=== PATIENT | female | born 1955 | race Caucasian/White ===

== ENCOUNTER → 2018-09-27 15:59 | Outpatient (CLI) | payer MEDICARE, MEDICAID, SELFPAY ==
--- NOTE | 2018-09-27 16:04 | CT_ITS ---
CT lung screening EXAM: CT LUNG LOW DOSE WO CONTRAST HISTORY: 30+ pack year smoking history, asymptomatic for lung cancer ITS.REASON: Smoker X 30+ years; quit 7 years ago ORDERING PHYSICIAN: KRISTINA Owens PATIENT AGE: 63 years COMPARISON: None TECHNIQUE: The exam was performed on a [employer] Speed [address] scanner using 2.90 mGy CTDI. A low dose helical CT CHEST was performed on a multi-detector scanner. All CT scans at the facility use one or more dose reduction, viz: automated exposure control, ma/kV adjustment per patient size (including targeted exams where dose is matched to indication, i.e. head), or iterative reconstruction technique. The LDCT was performed in a facility that meets the criteria for the screening program. Data regarding this exam was submitted to ACR which is an approved registry. The order for this exam indicates that it came as a result of a lung cancer screening counseling shard decision-making visit that included all the elements required of such a visit including smoking cessation. The radiologist interpreting this exam meets the CMS criteria for the LDCT lung cancer screening program. The exam is reported using the Lung-RADS classification scale and reported to the ACR registry. NOTE: This study was performed for the specific purposes of lung cancer screening and is not an alternative to diagnostic chest CT. RADIATION DOSE: CTDI vol(CT dose Index-volume) = 2.90mG DLP (Dose Length Product) = 98.73 mGcm FINDINGS: There is prominent coronary artery calcifications present. Old granulomatous disease. There are atelectatic or fibrotic changes in the lung bases. There are atelectatic changes in the lingula. Left hemidiaphragm is elevated. Consolidation is present involving the left lower lobe posteriorly consistent with pneumonia 7 mm noncalcified nodule left lower lobe medially some of which could be related to some volume loss. IMPRESSION: 1. Lung RADS Category: 3, probably benign 2. Other findings: Left lower lobe pneumonia, coronary artery disease RECOMMENDATIONS: Recommend [address] for follow-up of the 7 mm nodule in the left lower lobe Suggest chest x-ray follow-up to confirm resolution of the left lower lobe pneumonia
== END ==
PROVIDERS: PCP Physician Assistant; Visit Provider Physician Assistant
DX: Z87.891 Personal history of nicotine dependence (principal); Z12.2 Encounter for screening for malignant neoplasm of respiratory organs

== ENCOUNTER → 2018-10-30 14:01 | Outpatient (CLI) | payer MEDICARE, MEDICAID, SELFPAY ==
--- NOTE | 2018-10-30 14:10 | XR_ITS ---
PROCEDURE: XR FOOT WT BEARING LT 3V CLINICAL INDICATION: knot on left foot COMPARISON: XR ANKLE WT BEARING LT MIN 3V from 10/30/2018 FINDINGS: The ankle has an unremarkable appearance. There is prominent bony hypertrophy involving the dorsal aspect of the medial cuneiform and mid cuneiform with osteoarthritic changes of the tarsometatarsal junction at the cuneiforms. There are osteoarthritic changes of the navicular cuneiform joint as well and the talonavicular joint with a small accessory center of ossification at the dorsal and proximal aspect of the navicular. No fracture or dislocation evident. There is soft tissue swelling noted at the region of the dorsal hypertrophy at the cuneiforms accounting for the palpable abnormality. IMPRESSION: Severe midfoot osteoarthritic changes with bony hypertrophy and skin thickening along the dorsal aspect of the metatarsal tarsal joint with mild pes planus Dictated by: Onesimo Thompson MD 10/30/2018 14:55 Electronically signed by Onesimo Thompson MD in [place] 10/30/2018 14:55
--- NOTE | 2018-10-30 14:10 | XR_ITS ---
PROCEDURE: XR ANKLE WT BEARING RT MIN 3V CLINICAL INDICATION: pain COMPARISON: XR FOOT WT BEARING RT 3V from 10/30/2018 FINDINGS: There are osteoarthritic changes of the ankle joint with loss of joint space greater along the lateral aspect and osteosclerosis of the distal tibia and talar dome with some cortical regularity of the talar dome. There is mild flattening of the talar dome anteriorly. There are hypertrophic changes along the mid aspect of the talus and hypertrophic changes along the dorsal aspect of the navicular. There is pes planus. There appears to be an accessory ossicle at the dorsal aspect of the navicular on the oblique view of the foot. There are mild osteoarthritic changes of the subtalar joint posteriorly. Mild hypertrophic changes are present at the distal aspect of the 1st metatarsal. IMPRESSION: 1. Severe osteoarthritic changes of the ankle with flattening of the talar dome 2. Mild osteoarthritic change posterior subtalar joint and midfoot with pes planus Dictated by: Onesimo Thompson MD 10/30/2018 14:49 Electronically signed by Onesimo Thompson MD in [place] 10/30/2018 14:49
--- NOTE | 2018-10-30 14:17 | XR_ITS ---
PROCEDURE: XR CHEST 2V CLINICAL HISTORY: resolving pneumonia Pneumonia COMPARISON: LUNGSCREEN CT lung screening from 09/27/2018 FINDINGS: The cardiomediastinal silhouette and pulmonary vascularity are within normal limits. Left hemidiaphragm is elevated. There is minimal blunting of the left CP angle. No lobar consolidation or collapse is evident. There are degenerative changes in the mid and lower thoracic spine. There is mild wedging involving T12. IMPRESSION: No acute findings. Dictated by: Onesimo Thompson MD 10/30/2018 14:43 Electronically signed by Onesimo Thompson MD in [place] 10/30/2018 14:43
== END ==
PROVIDERS: PCP Physician Assistant; Visit Provider Podiatrist
DX: J18.9 Pneumonia, unspecified organism; M25.572 Pain in left ankle and joints of left foot; M25.571 Pain in right ankle and joints of right foot; M79.672 Pain in left foot; M79.671 Pain in right foot
CPT/HCPCS: 71046; 73610; 73630

== ENCOUNTER → 2021-04-22 13:49 | Outpatient (CLI) | payer MEDICARE, MEDICAID, SELFPAY | PROVIDERS: Visit Provider Physician Assistant | DX: N39.0 Urinary tract infection, site not specified (principal); B95.8 Unspecified staphylococcus as the cause of diseases classified elsewhere | CPT/HCPCS: 87086; 87088; 87186 ==

== ENCOUNTER → 2021-09-11 13:49 | Outpatient (CLI) | payer MEDICARE, MEDICAID, SELFPAY ==
[2021-09-11 13:55] LABS: Microscopic, Urine URINE MICROSCOPIC (MICROSCOPIC)
[2021-09-11 14:09] LABS: Appearance,Urine CLEAR (Clear); Bilirubin,Urine Negative (Negative); Blood, Urine TRACE-I (Negative); Color,Urine YELLOW (Yellow); Glucose,Urine (UA) Negative (Negative); Ketones,Urine Negative (Negative); Leukocyte Esterase,Urine Negative (Negative); Nitrate,Urine Negative (Negative); Protein,Urine Negative (Negative); Specific Gravity, Urine >= 1.030 (1.005-1.030); Urobilinogen,Urine 0.2 EU/dl (0.2)
[2021-09-11 14:21] LABS: Bacteria,Urine Trace /lpf; Mucus,Urine Trace /lpf; Squamous Epithelial Cell,Urine Occasional #/hpf (0-5)
== END ==
PROVIDERS: PCP Physician Assistant; Visit Provider Physician Assistant
DX: R35.0 Frequency of micturition (principal)
CPT/HCPCS: 81001; 87086

== ENCOUNTER → 2021-09-23 11:54 | Outpatient (CLI) | payer MEDICARE, MEDICAID, SELFPAY | PROVIDERS: PCP Physician Assistant; Visit Provider Physician Assistant | DX: R39.9 Unspecified symptoms and signs involving the genitourinary system (principal) | CPT/HCPCS: 87086 ==

== ENCOUNTER → 2021-11-20 09:34 | Outpatient (CLI) | payer MEDICARE, MEDICAID, SELFPAY ==
--- NOTE | 2021-11-20 09:34 | XR_ITS ---
FINAL REPORT TECHNIQUE: Bone densitometry calculations of the lumbar spine and hips were obtained. CLINICAL HISTORY: . post menopausal FINDINGS: Using L1-4, the bone mineral density of the spine is 1.134 g/cm2, corresponding to T-score of 0.8. Using the left hip, the bone mineral density of the femoral neck is 0.675 g/cm2, corresponding to a T-score of -2.2. Using the right hip, the bone mineral density of the femoral neck is 0.689 g/cm2, corresponding to a T-score of -2.1. IMPRESSION: Osteopenia of the femurs with normal bone mineral density of the lumbar spine. Reviewed, Interpreted and Dictated by Saad Bo MD Transcribed by Yogi Hopkins Authenticated and [facility]
== END ==
PROVIDERS: PCP Physician Assistant; Visit Provider Physician Assistant
DX: Z78.0 Asymptomatic menopausal state (principal)
CPT/HCPCS: 77080

== ENCOUNTER → 2022-01-19 09:36 | Outpatient (CLI) | payer MEDICARE, MEDICAID, SELFPAY ==
--- NOTE | 2022-01-19 09:40 | XR_ITS ---
FINAL REPORT CLINICAL HISTORY: knee pain FINDINGS: 3 views of the left knee were obtained. No fracture or dislocation. Severe tri compartment degenerative change. Osteopenia. IMPRESSION: Severe tri compartment degenerative change. Reviewed, Interpreted and Dictated by Saad Bo MD Transcribed by Yogi Hopkins Authenticated and [facility]
[2022-01-19 09:51] LABS: Adenovirus,PCR Not Detected (NotDetected); Bordetella Pertussis Not Detected (NotDetected); Chlamydophila Pneumoniae, PCR Not Detected (NotDetected); Coronavirus 19, PCR Not Detected (NotDetected); Coronavirus 229E Not Detected (NotDetected); Coronavirus NL63 Not Detected (NotDetected); Coronavirus OC43 Not Detected (NotDetected); Coronovirus HKU1,PCR Not Detected (NotDetected); Human Metapneumovirus Not Detected (NotDetected); Influenza A, PCR Not Detected (NotDetected); Influenza AH1, 2009 Not Detected (NotDetected); Influenza AH1, PCR Not Detected (NotDetected); Influenza AH3,PCR Not Detected (NotDetected); Influenza B, PCR Not Detected (NotDetected); Mycoplasma Pneumoniae, PCR Not Detected (NotDetected); Parainfluenza 1, PCR Not Detected (NotDetected); Parainfluenza 2, PCR Not Detected (NotDetected); Parainfluenza 3, PCR Not Detected (NotDetected); Parainfluenza 4, PCR Not Detected (NotDetected); Respiratory Syncytial Virus Not Detected (NotDetected); Rhinovirus/Enterovirus Not Detected (NotDetected)
== END ==
PROVIDERS: PCP Emergency Medicine; Visit Provider Orthopaedic Surgery
DX: M25.562 Pain in left knee (principal); Z20.822 Contact with and (suspected) exposure to COVID-19
CPT/HCPCS: 73562; 87581; 87632; 87798; C9803; U0003; U0005

== ENCOUNTER → 2022-12-15 08:36 | Outpatient (CLI) | payer MEDICARE, MEDICAID, SELFPAY ==
--- NOTE | 2022-12-15 08:40 | MM_ITS ---
PROCEDURE INFORMATION: Exam: MG Bilateral Screening 3D Mammography Exam date and time: 12/15/2022 8:52 AM Age: 67 years old Clinical indication: Screening mammogram. Family history of breast cancer in grandmother TECHNIQUE: Imaging protocol: Bilateral Screening tomosynthesis and 2D mammography including computer-aided detection (CAD) when performed. COMPARISON: 1. MG JENNIFER SCRN MAMMO W/CAD BILAT 05/03/2017 2:08 PM 2. MG MA MAMMO SCRN DIGITL BILAT 02/29/2012 10:18 AM FINDINGS: MAMMOGRAPHY: Breast composition: There are scattered areas of fibroglandular density. Mass: None. Architectural distortion: No new or suspicious architectural distortion. Calcifications: No new or suspicious calcifications are present Asymmetric density: No new or suspicious asymmetric density is present Skin thickening: None. Axillary adenopathy: None. IMPRESSION: No mammographic evidence of malignancy. Recommend annual screening mammography unless otherwise clinically indicated. ASSESSMENT: BI-RADS category 1: Negative
--- NOTE | 2022-12-15 08:40 | CT_ITS ---
FINAL REPORT CLINICAL HISTORY: lung cancer screening former smoker, quit 10 years ago. .5 ppd x 30 years COMPARISON: None FINDINGS: CT CHEST LOW DOSE SCREENING HISTORY: Screening exam for lung cancer. Patient is a 67-year-old female, former smoker who quit 10 years ago, 15 pack year smoking history DOSE: CTDIvol: 2.9 mGy, DLP: 91.95 mGy*cm COMPARISON: None . TECHNIQUE: Axial CT without IV contrast administration using low dose protocol FINDINGS: Severe left coronary artery calcifications are present, which account for the S designation in this patient. There is atelectasis and/or scar at the lung bases bilaterally. There is bronchial wall thickening consistent with bronchitis. . A moderate-sized hiatal hernia is noted. There is a 4 mm nodule in the inferior portion of the lingula, seen best on image #46. No pleural or pericardial effusion is seen . No adenopathy or mass lesion is present . IMPRESSION: 4 mm nodule inferior lingula image #46. Severe left coronary artery calcifications, which are responsible for the S designation. Bronchial wall thickening consistent with bronchitis. LUNG RADS CATEGORY 2S RECOMMENDATION: 12 month LDCT follow up Reviewed, Interpreted and Dictated by Andrey Rivera III, MD Transcribed by Yesika Cotton Authenticated and [facility]
--- NOTE | 2022-12-15 08:40 | US_ITS ---
Ultrasound Sonograher: PROCEDURE: US TRANSVAGINAL CLINICAL INDICATION: LLQ pelvic pain COMPARISON: No exams were available for comparison FINDINGS: Transvaginal sonographic images of the pelvis were obtained. UTERUS: The uterus is surgically absent. Vaginal cuff appears intact. LEFT OVARY: Not visualized RIGHT OVARY: Not visualized Both ovaries are not seen. There is no fluid in the cul-de-sac. IMPRESSION: 1. Uterus has been surgically removed. 2. Vaginal cuff is intact and normal in appearance. 3. The ovaries were not visualized. This could be a result of atrophy or surgical removal. 4. No fluid in the cul-de-sac. Dictated by: Alec Perkins MD 12/15/2022 14:21 Alec Perkins MD in [place] 12/15/2022 14:21
== END ==
PROVIDERS: PCP Physician Assistant; Visit Provider Physician Assistant
DX: Z12.31 Encounter for screening mammogram for malignant neoplasm of breast (principal); Z87.891 Personal history of nicotine dependence; R10.32 Left lower quadrant pain
CPT/HCPCS: 71271; 76830; 77063; 77067

== ENCOUNTER → 2023-01-11 11:21 | Outpatient (CLI) | payer MEDICARE, MEDICAID, SELFPAY ==
[2023-01-11 12:10] LABS: Basophils # 0.1 K/mm3 (0-0.2); Basophils % 0.7 % (0.1-2.0); Eosinophils # 0.7 K/mm3 (0.0-0.4); Lymphocytes # 1.6 K/mm3 (0.7-4.5); Lymphocytes % 20.2 % (10-50); Mean Corpuscular HGB Conc 33.4 g/dL (31.8-35.4); Mean Corpuscular Hemoglobin 29.8 pg (27.0-31.2); Mean Corpuscular Volume 89.1 fl (81-99); Mean Platelet Volume 7.7 fl (7.4-10.4); Monocytes # 0.6 K/mm3 (0.1-1.0); Monocytes % 7.4 % (1.7-9.3); Neutrophils # 5.1 K/mm3 (1.8-7.8); Neutrophils % 62.8 % (37.0-80.0); Platelet Count 283 K/mm3 (142-424); Red Blood Count 5.05 M/mm3 (4.20-5.40); Red Cell Distribution Width 14.4 % (11.5-17.5); White Blood Count 8.1 K/mm3 (4.8-10.8)
[2023-01-11 12:44] LABS: Alanine Aminotransferase 30 U/L (12-78); Alkaline Phosphatase 159 U/L (38-126); Anion Gap 10.2 mEq/L (5-15); Aspartate Amino Transferase 37 U/L (14-36); Bilirubin,Indirect 0.4 mg/dL (0.0-0.9); Bilirubin,Total 0.4 mg/dl (0.2-1.3); Bilirubin,Unconjugated 0.3 mg/dL (0.0-1.1); Blood Urea Nitrogen 9 mg/dl (7-17); Calcium 9.1 mg/dl (8.4-10.2); Carbon Dioxide 28 mmol/L (22.0-30.0); Chloride 99 mmol/L (98-107); Chol/HDL Ratio 2.9 (1-3.5); Cholesterol 153 mg/dl (140-200); Estimated Glomerular Filt Rate 99 ml/min (>60); GFR (African American) 120 ML/MIN (>60); Glucose 85 mg/dl (74-100); HDL Cholesterol 53 mg/dl (40-60); Potassium 4.2 mmoL/L (3.5-5.1); Sodium 133 mmol/L (136-145); Total Protein,Serum 6.8 g/dl (6.3-8.2); Triglycerides 100 mg/dl (30-150); VLDL Cholesterol 20 mg/dL (0-40)
[2023-01-11 12:55] LABS: Direct LDL Cholesterol 77.83 mg/dL (100-129)
[2023-01-11 13:00] LABS: Free T4 (Free Thyroxine) 1.18 ng/dl (0.78-2.19)
[2023-01-11 13:14] LABS: Thyroid Stimulating Hormone 0.84 uIU/mL (0.465-4.68)
== END ==
PROVIDERS: PCP Physician Assistant; Visit Provider Internal Medicine
DX: I25.10 Atherosclerotic heart disease of native coronary artery without angina pectoris (principal); R94.31 Abnormal electrocardiogram [ECG] [EKG]; Z79.899 Other long term (current) drug therapy
CPT/HCPCS: 36415; 80048; 80061; 80076; 83036; 83735; 84439; 84443; 85025

== ENCOUNTER → 2023-01-27 11:35 | Outpatient (CLI) | payer MEDICARE, MEDICAID, SELFPAY ==
--- NOTE | 2023-01-27 11:36 | NM_ITS ---
APPROVED REPORT Exam: Nuclear Stress Test Indication: abn ekg Patient Location: Outpatient Stress Tech: Madeline Smith [place] Tech:ZACH Hernandez RT(R)(N) Ht: 5 ft 1 in Wt: 129 lbs Bra Size: b HR: 84 bpm BP: 137/89 mmHg BSA: 1.57 m2 Rhythm: NSR TID: 0.92 BMI: 24.3 History: Abnormal EKG Procedure: Patient exercised on Bar protocol 9 minutes and sec, resting heart rate 84 bpm, resting blood pressure 137/89 mmHg, with exercise maximum heart rate achived was 160 bpm which is 106 % of the maximum predicted heart rate and blood pressure was 174/84 mmHg. Test was stopped due to fatigue. Patient denied any complaint of chest pain. Patient has Average exercise capacity, achieved 10.1 METs of workload on treadmill, the blood pressure response to exercise was Normal. Cardiac Stress and Resting SPECT Images: Cardiac Stress and Resting SPECT images were obtained using technetium 99m Myoview 31.0 mCi stress and 10.19 mCi at rest. Resting and stress imaging in supine and prone positions demonstrate no evidence of fixed or reversible perfusion defects. Gated imaging demonstrates normal global and regional LV systolic function. LVEF estimated at 59%. Conclusion: No evidence of fixed or reversible perfusion defects. Gated imaging demonstrates normal global and regional LV systolic function. LVEF estimated at 59%. Electronically signed by : Bernadine Ha MD 01/27/2023 15:39:02
--- NOTE | 2023-01-27 12:46 | CA_ITS ---
APPROVED REPORT EXAM: Comprehensive 2D, Doppler, and color-flow Echocardiogram Rare/Endangered Species Specialist: Rosana Giron RVT Ht: 5 ft 2 in Wt: 129lbs BSA: 1.59 BP: 145/98 mmHg Indications: CAD,ABN EKG,EX SMOKER 2D Dimensions LA Volume 44.20 mL LA Volume Index 27.80 mL/m2 (M/F) 16-34 M-Mode Dimensions RVDd 3.03 cm (0.9-2.6) LA Diam 2.92 cm (1.9-4.0) LVDd 3.52 cm (3.5-5.7) LVDs 2.42 cm (3.5-5.7) IVSd 1.42 cm (0.6-1.1) PWd 0.64 cm (0.6-1.1) EF (Teich) 60.10% FS 31.30% EDV (Teich) 51.60 mL TAPSE 2.55 (<1.7) ESV (Teich) 20.60 mL LV Diastology E Decel Time 183 (160-240 msec) E/A Ratio 0.7 Aortic Valve MARICRUZ Index 1.77 cm2/m2 AoV Peak Justo. 106.0 (50-130 cm/s) AO Peak GR. 4.50 mmHg AO Mean GR. 2.90 (<5 mmHg) AO VTI 19.6 (18-25 cm) MARICRUZ (VTI) 2.87 (2.5-4.5 cm2) Mitral Valve MV E Max Justo. 59.0 (40-130 cm/s) MV A Velocity 88.0 (40-130 cm/s) E/A Ratio 0.67 MV PHT 54.0 ms Pulmonary Valve PV Peak Velocity 64.0 (50-150 cm/s) Tricuspid Valve TR P. Velocity 178.00 cm/s RAP Estimate 10.00 mmHg RVSP 22.70 mmHg Left Ventricle The left ventricle is normal size. The left ventricular systolic function is normal. The left ventricular ejection fraction is within the normal range. There is increased LV wall thickness. There is normal LV segmental wall motion. Transmitral Doppler flow pattern suggests impaired LV relaxation. LVEF is 60%. Right Ventricle The right ventricle is normal size. The right ventricular systolic function is normal. Atria The left atrium size is normal. The right atrium size is normal. There is no Doppler evidence of interatrial shunt. Aortic Valve The aortic valve is normal in structure. There is no aortic valvular stenosis. No aortic regurgitation is present. Mitral Valve The mitral valve is normal in structure. No evidence of mitral valve stenosis. There is no mitral valve regurgitation noted. Tricuspid Valve Tricuspid valve leaflets are thin and pliable. Trace tricuspid regurgitation. RVSP is normal. Pulmonic Valve The pulmonary valve is normal in structure. Trace pulmonic regurgitation. Great Vessels The aortic root is normal in size. The ascending aorta is normal in size. IVC is normal in size and collapses >50% with inspiration. Pericardium There is no pericardial effusion. Other Information Study Quality: Fair Conclusion Normal biventricular systolic function. No significant valvular stenosis or regurgitation. Electronically signed by : Bernadine Ha MD 01/30/2023 20:52:20
--- NOTE | 2023-01-27 13:40 | CA_ITS ---
APPROVED REPORT Exam: Exercise Treadmill Technologist: Madeline Ramirez, Ht: 5 ft 2 in Wt: 129 lbs BSA: 1.59 m2 HR: 78 bpm BP: 142/85 mmHg Rhythm: NSR Medical History Medications: Flonase,,,,, Albuterol,,,,, Zofran,,,,, Hydrocodone-Acetaminophen,,,,, Stress Test Details Test: Bar HR Resting HR: 84 bpm Max Heart Rate (APMHR): 151 bpm Max HR Achieved: 160 bpm Target HR (85% APMHR): 128 bpm % of APMHR: 106 Recovery HR: 91 bpm HR response to stress: Normal HR response to stress BP Resting BP: 137.0/89.0 mmHg Max BP: 174.0/84.0 mmHg Recovery BP: 144.0/72.0 mmHg BP response to stress: Normal blood pressure response to stress. ECG Resting ECG: NSR, left axis deviation, cannot R/O old inferior or anterior [place] Stress ECG: New T wave inversion in anterior leads Arrhythmia: None Recovery ECG: Return to baseline within 3 minutes of recovery Recovery Arrhythmia: None Clinical Exercise duration: 09:00 min Highest Stage Achieved: III Exercise capacity: 10.1 METs Overall Exercise Capacity for Age: Average Stress ECG Conclusion The patient was able to exercise for a total of 9 minutes, 0 seconds. She achieved a total of 10.1 METS. She has average exercise capacity compared to age and sex matched peers. She has normal HR and BP response to exercise. Max HR: 132 % of PM: 87% Max BP: 174/84 METs: 10.1 Test stopped due to: SOA, Fatigue Symptoms: No CP. Arrhythmias/Ectopy: None ST-T Changes: New T wave inversions noted in the anterior leads. No ST changes Conclusion: Average exercise capacity. Nondiagnostic ECG stress test. Myoview images reported separately. Test Summary REST . . . . . . . Sitting REST . . . . . . . Standing REST 04:35 0.0 0.0 84 . 137/ 89 . . Stage 1 01:00 10.0 1.7 99 . . . . Stage 1 02:00 10.0 1.7 105 . . . . Stage 1 03:00 10.0 1.7 106 . 174/ 84 . . Stage 2 01:00 12.0 2.5 129 . . . . Stage 2 02:00 12.0 2.5 112 . . . . Stage 2 03:00 12.0 2.5 104 . . . . Stage 3 01:00 14.0 3.4 120 . . . . Stage 3 . . . . . . . Myoview Injected Stage 3 02:00 14.0 3.4 126 . . . . Stage 3 03:00 14.0 3.4 131 . . . Stop exercise at 09:00 RECOVERY 01:00 0.0 0.0 115 . . . . RECOVERY 02:00 0.0 0.0 102 . . . . RECOVERY 03:00 0.0 0.0 98 . 170/ 77 . . RECOVERY 04:00 0.0 0.0 95 . 155/ 72 . . RECOVERY 05:00 0.0 0.0 92 . 155/ 72 . . RECOVERY 05:22 0.0 0.0 91 . 144/ 72 . . Electronically signed by : Bernadine Ha MD 01/27/2023 15:37:35
== END ==
PROVIDERS: PCP Physician Assistant; Visit Provider Internal Medicine
DX: I25.10 Atherosclerotic heart disease of native coronary artery without angina pectoris (principal); R94.31 Abnormal electrocardiogram [ECG] [EKG]
CPT/HCPCS: 78452; 93017; 93018; 93306; A9502

== ENCOUNTER → 2023-01-28 09:48 | Outpatient (CLI) | payer MEDICARE, MEDICAID, SELFPAY ==
[2023-01-28 18:13] LABS: Basophils # 0.1 K/mm3 (0-0.2); Eosinophils % 10.8 % (0.1-12.0); Hematocrit 42.9 % (37.0-47.0); Hemoglobin 14.5 g/dL (12.2-16.2); Lymphocytes # 1.8 K/mm3 (0.7-4.5); Mean Corpuscular HGB Conc 33.7 g/dL (31.8-35.4); Mean Corpuscular Volume 89.1 fl (81-99); Mean Platelet Volume 8.9 fl (7.4-10.4); Monocytes # 0.9 K/mm3 (0.1-1.0); Monocytes % 9.4 % (1.7-9.3); Neutrophils # 5.3 K/mm3 (1.8-7.8); Neutrophils % 58.9 % (37.0-80.0); Platelet Count 318 K/mm3 (142-424); Red Blood Count 4.81 M/mm3 (4.20-5.40); Red Cell Distribution Width 13.9 % (11.5-17.5); White Blood Count 9.1 K/mm3 (4.8-10.8)
[2023-01-28 18:42] LABS: Alanine Aminotransferase 30 U/L (12-78); Albumin Level 4.6 g/dl (3.5-5.0); Albumin/Globulin Ratio 1.5 (1.1-1.8); Alkaline Phosphatase 159 U/L (38-126); Anion Gap 13.8 mEq/L (5-15); Aspartate Amino Transferase 42 U/L (14-36); Bilirubin,Total 0.5 mg/dl (0.2-1.3); Blood Urea Nitrogen 21 mg/dl (7-17); Calcium 9.6 mg/dl (8.4-10.2); Carbon Dioxide 26 mmol/L (22.0-30.0); Chloride 99 mmol/L (98-107); Estimated Glomerular Filt Rate 83 ml/min (>60); GFR (African American) 100 ML/MIN (>60); Globulin 3.1 g/dL (1.3-3.2); Glucose 72 mg/dl (74-100); Potassium 4.8 mmoL/L (3.5-5.1); Sodium 134 mmol/L (136-145); Total Protein,Serum 7.7 g/dl (6.3-8.2)
[2023-01-28 18:47] LABS: C-Reactive Protein 8.3 mg/L (0-4)
[2023-01-28 18:59] LABS: Erythrocyte Sedimentation Rate 18 mm/hr (0-30)
[2023-01-29 03:31] LABS: Amphetamine/Metha Screen,Urine Negative ng/ml (<1000)
[2023-01-29 03:32] LABS: Barbiturates Screen,Urine Negative ng/ml (<200)
[2023-01-29 03:33] LABS: Benzodiazepines Screen,Urine Negative ng/ml (<200); Cannabinoid Screen,Urine Positive ng/ml (<50)
[2023-01-29 03:34] LABS: Cocaine Screen,Urine Negative ng/ml (<300)
[2023-01-29 03:35] LABS: Methadone Screen,Urine Negative ng/ml (<300); Opiate Screen,Urine Negative ng/ml (<300)
[2023-01-29 03:36] LABS: Phencyclidine Screen,Urine Negative ng/ml (<25)
[2023-01-30 10:03] LABS: RA Latex Turbid. 10.6 IU/mL (<14.0)
[2023-01-31 13:02] LABS: Anti-Centromere B Antibodies <0.2 AI (0.0-0.9); Anti-DNA (DS) Ab Qn <1 IU/mL (0-9); Anti-Jo-1 <0.2 AI (0.0-0.9); Anti-Smith Antibody <0.2 AI (0.0-0.9); Antichromatin Antibodies <0.2 AI (0.0-0.9); Antiscleroderma-70 Antibodies <0.2 AI (0.0-0.9); RNP Antibodies 0.4 AI (0.0-0.9); Sjogren's Anti-SS-A <0.2 AI (0.0-0.9); Sjogren's Anti-SS-B <0.2 AI (0.0-0.9)
[2023-01-31 13:08] LABS: Anti-Cyclic Citrullinated Pept 12 units (0-19)
== END ==
PROVIDERS: PCP Physician Assistant; Visit Provider Physician Assistant
DX: L53.9 Erythematous condition, unspecified (principal); M17.12 Unilateral primary osteoarthritis, left knee; M25.571 Pain in right ankle and joints of right foot; G89.4 Chronic pain syndrome
CPT/HCPCS: 80053; 80305; 85025; 85651; 86140; 86200; 86225; 86235; 86431

== ENCOUNTER → 2023-01-31 11:39 | Outpatient (CLI) | payer MEDICARE, MEDICAID, SELFPAY ==
[2023-02-07 11:45] LABS: HBsAg Screen Negative (Negative); HCV Ab Non Reactive (Non Reactive); Hep A Ab, IGM Negative (Negative); Hep B Core Ab, IgM Negative (Negative)
== END ==
PROVIDERS: PCP Physician Assistant; Visit Provider Physician Assistant
DX: G89.4 Chronic pain syndrome; R94.5 Abnormal results of liver function studies; R74.8 Abnormal levels of other serum enzymes
CPT/HCPCS: 80074

== ENCOUNTER 2023-09-21 13:27 | Outpatient (CLI) | payer MEDICARE, MEDICAID, SELFPAY ==
--- NOTE | 2023-09-21 13:31 | XR_ITS ---
FINAL REPORT CLINICAL HISTORY: lt hand pain fall a few months ago, c/o continued left hand pain FINDINGS: Left hand Three views were obtained. There is no acute fracture or dislocation. There are moderate hypertrophic changes of osteoarthritis, particularly evident at the 3rd DIP joint. There is joint space narrowing and hypertrophic changes at the metacarpophalangeal joints. There is no evidence of bony erosion or periosteal reaction. No soft tissue abnormality is identified. IMPRESSION: Moderate hypertrophic changes of osteoarthritis, particularly at the 3rd DIP joint. Reviewed, Interpreted and Dictated by Cedric Chinchilla MD Transcribed by Nelly Grace Authenticated and [facility]
== END 2023-09-21 23:59 | disposition home or self-care (01) ==
LOC: RAD 13:28
PROVIDERS: PCP Physician Assistant; Visit Provider Physician Assistant
DX: M79.642 Pain in left hand (principal)
CPT/HCPCS: 73130

== ENCOUNTER 2023-12-19 14:45 | Outpatient (CLI) | payer MEDICARE, MEDICAID, SELFPAY ==
[2023-12-19 18:43] LABS: Alanine Aminotransferase 104 U/L (12-78); Albumin Level 4.1 g/dl (3.5-5.0); Albumin/Globulin Ratio 1.6 (1.1-1.8); Alkaline Phosphatase 94 U/L (38-126); Aspartate Amino Transferase 65 U/L (14-36); Bilirubin,Total 0.5 mg/dl (0.2-1.3); Blood Urea Nitrogen 23 mg/dl (7-17); Calcium 9.8 mg/dl (8.4-10.2); Carbon Dioxide 28 mmol/L (22.0-30.0); Chloride 99 mmol/L (98-107); Estimated Glomerular Filt Rate 83 ml/min (>60); GFR (African American) 100 ML/MIN (>60); Globulin 2.6 g/dL (1.3-3.2); Glucose 92 mg/dl (74-100); Sodium 135 mmol/L (136-145); Total Protein,Serum 6.7 g/dl (6.3-8.2)
[2023-12-19 19:42] LABS: 25-OH Vitamin D, Total 27.2 ng/mL (30-100)
== END 2023-12-19 23:59 | disposition home or self-care (01) ==
LOC: LAB.DROPOF 12-20 12:49
PROVIDERS: PCP Internal Medicine; Visit Provider Internal Medicine
DX: E55.9 Vitamin D deficiency, unspecified (principal); R73.03 Prediabetes
CPT/HCPCS: 80053; 82306; 83036

== ENCOUNTER 2024-07-03 12:30 | Outpatient (CLI) | payer MEDICARE, MEDICAID, SELFPAY ==
[2024-07-03 19:30] LABS: Basophils # 0.1 K/mm3 (0-0.2); Basophils % 0.8 % (0.1-2.0); Eosinophils # 0.4 Kmm3 (0.0-0.4); Eosinophils % 5.7 % (0.1-12.0); Hematocrit 42.4 % (37.0-47.0); Hemoglobin 13.9 g/dL (12.2-16.2); Immature Granulocytes # 0.03 10^3uL; Immature Granulocytes % 0.4 %; Lymphocytes # 1.6 K/mm3 (0.7-4.5); Mean Corpuscular HGB Conc 32.8 g/dL (31.8-35.4); Mean Corpuscular Hemoglobin 28.4 pg (27.0-31.2); Mean Corpuscular Volume 86.5 fl (81-99); Mean Platelet Volume 9.6 fl (7.4-10.4); Monocytes # 0.8 K/mm3 (0.1-1.0); Monocytes % 9.9 % (1.7-9.3); Neutrophils # 4.8 K/mm3 (1.8-7.8); Neutrophils % 62.2 % (37.0-80.0); Nucleated Red Blood Cells # 0 10^3/uL; Nucleated Red Blood Cells % 0 %; Platelet Count 347 K/mm3 (142-424); Red Cell Distribution Width-SD 44.4 fL; White Blood Count 7.7 K/mm3 (4.8-10.8)
[2024-07-03 19:54] LABS: Chloride 102 mmol/L (98-107)
[2024-07-03 19:55] LABS: Potassium 4.9 mmoL/L (3.5-5.1); Sodium 136 mmol/L (136-145)
[2024-07-03 19:58] LABS: Alanine Aminotransferase 31 U/L (12-78); Albumin/Globulin Ratio 1.4 (1.1-1.8); Alkaline Phosphatase 200 U/L (38-126); Anion Gap 9.9 mEq/L (5-15); Aspartate Amino Transferase 27 U/L (14-36); Bilirubin,Total 0.3 mg/dl (0.2-1.3); Blood Urea Nitrogen 9 mg/dl (7-17); Calcium 9.5 mg/dl (8.4-10.2); Carbon Dioxide 29 mmol/L (22.0-30.0); Chol/HDL Ratio 3.8 (1-3.5); Cholesterol 173 mg/dl (140-200); Estimated Glomerular Filt Rate 82 ml/min (>60); GFR (African American) 100 ML/MIN (>60); Globulin 2.8 g/dL (1.3-3.2); Glucose 86 mg/dl (74-100); HDL Cholesterol 45 mg/dl (40-60); Total Protein,Serum 6.8 g/dl (6.3-8.2); Triglycerides 118 mg/dl (30-150); VLDL Cholesterol 24 mg/dL (0-40)
[2024-07-03 20:09] LABS: Direct LDL Cholesterol 95.35 mg/dL (100-129)
[2024-07-03 20:12] LABS: 25-OH Vitamin D, Total 32.9 ng/mL (30-100)
--- OUTSIDE RECORDS SUMMARY | 2024-07-05 12:34 | XMS_ITS | Continuity of Care Document ---
Author Organization 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 We discussed conservative management including injections and NSAIDS as well as surgical intervention. We discussed the ROM she would have after a full recovery with an RTSA. Pt would like to move forward with RTSA. I would not recommend waiting given the thinning of the acromion. The indications, alternatives, risks, and benefits were fully discussed. The risks include but are not limited to infection, neurovascular injury, bleeding, persistent pain, stiffness, adhesions, component loosening, stress fracture, instability, blood clot, and medical problems. The duration of recovery was fully discussed. All questions were asked and answered. *CT before surgical intervention for glenoid version* [email or web address] Not available 06/11/2024 12:24:56 Plan of Treatment Reminders Order Date Submit Date Provider Last Modified By Organization Details Last Modified Time Details Appointments None recorded. Lab None recorded. Referral None recorded. Procedures None recorded. Surgeries reverse total shoulder arthroplast y (SURG) 2024 025 [email or web address] Not available 16:06:[address], shoulder, w/o contrast - CT shoulder arthroplast y protocol for pre-op planning 2024 025 [email or web address] Not available 13:07:48 Medication Orders None recorded. Patient TargetsNo targets recorded. Patient InstructionsNo instructions recorded. Reason for Referral None Reported. Results Created Date Observation Date Name Description Value Unit Range Abnormal Flag Note LastModifiedBy Organization Detail LastModifiedTime 06/12/1906/11/2024 XR, shoul gibran, 2 or more view [place] [facility] [place] [address] [place] [id number] Patien t Name: RYAN THOMPSON Patijoseluis t : [birth year] Patien t Orderi ng Provid er: JESUSITA ZHAO AM EXAM DATE: 2024 EXAM: XR LT SHOULD ER COMPLE TE RADIOG RAPHIC VIEWS: 2 COMPAR JESUS: 019 HISTOR Y: Left should er pain. FINDIN GS: There is severe sublux ation of the costa l head relati ve to the glenoi d with comple te oblite ration of the subacr omial space. There is remode ling along the unders urface of the acromi um proces s. There is no eviden ce of fractu re. There is modera te to severe degene rative change s at the glenoh umeral joint. There are modera te degene rative change s at the acromi oclavi cular joint and along the greate r tubero sity of the humeru s. The acromi oclavi cular and coraco clavic ular spacin g is normal . The visual ized left ribs and left lung appear s normal . IMPRES AMINATA: 1. There are severe degene rative change s in the left should er. There is comple te narrow ing of the subacr omial space consis tent with a full-t hickne ss rotato r cuff tear. Interp reted By: Osvaldo kaplan MD Electr onical ly Signed By: Osvaldo kaplan MD on 025 11:58 AM [facility] [place] [address], [place], [address], 06/11/2024 12:18:42 06/26/19 25 06/25/2024 CT, shoul gibran, w/o contr ast [place] [facility] [address] [place] [address] Patijoseluis t Name: RYAN irvin : [birth year] Patijoseluis t Orderi ng Provid er: JESUSITA ZHAO AM EXAM DATE: 2024 EXAM: CT LT SHOULD ER W/O CONTRA ST HISTOR Y: 69-yea r-old female with left should er pain. COMPAR JESUS: 025 TECHNI QUE: 1 mm axial direct images were obtain ed throug h the left should er, and comput er genera valorie obliqu e villalta l, obliqu e sagitt al, and reform atted axial sequen bob were genera valorie from the source images . FINDIN GS: There are severe degene rative change s in the glenoh umeral joint. There is modera te to severe margin al spurri ng. There is narrow ing of the subacr omial space. There are modera te degene rative change s in the acromi oclavi cular joint. The acromi oclavi cular and coraco clavic ular ligame nts appear intact . The distal supras pinatu s tendon is not visual ized consis tent with a full-t hickne ss tear. There is a possib le tear of the superi or aspect of the infras pinatu s tendon . There is also a probab le tear of the subsca pulari s tendon . There is atroph y of the supras pinatu s and subsca pulari s muscle s. There is a large amount of fluid in the subacr omial- subdel toid bursa. No soft tissue mass is identi fied. There are old fractu res of the left second throug h fourth ribs. There is increa sed densit y at the base of the left lower lobe. This could repres ent an underl daljit mass or an infilt rate. IMPRES AMINATA: 1. There are severe degene rative change s in the left glenoh umeral joint. 2. There are probab le full-t hickne ss tears of the supras pinatu s and subsca pulari s tendon s. 3. There is a densit y at the base of the left lung. This could repres ent a mass or infilt rate. Romain eugene CT of the chest is recomm ended to breann Vasques reted By: Osvaldo kaplan MD Electr onical ly Signed By: Osvaldo kaplan MD on 06/26/19 25 1:02 PM INTERFACE [facility] [address], [place], [address], 06/25/2024 13:07:49 Result Notes None recorded. Problems No Known Problems Procedures Surgical History Date Name Laterality Status Provider Name and Address Organization Details Recorded Time 04/06/19 25 Injection Joint/Bursa, Interm completed JEFF BEAULIEU MD [address] [place], [address], [facility] 04/06/2024 12:09:31 01/30/20 24 Injection Trigger Finger Ortho completed TIESHA CID PA-C [address] [place], [address], [facility] 01/30/2024 15:11:22 10/05/19 24 Injection Trigger Finger Ortho completed TIESHA CID PA-C [address] [place], [address], [facility] 10/05/2023 14:45:23 07/18/19 20 Injection Joint/Bursa, Major cancelled Omayra Reynaga [facility] 07/18/2019 08:39:01 04/10/19 20 Injection Joint/Bursa, Major completed Tank RAINEY PA-C [address] [place], [address], [facility] 04/10/2019 12:24:38 11/04/19 18 Injection Joint/Bursa, Major blossom RAINEY PA-C [address] [place], [address], [facility] 11/03/2017 15:09:47 Joint Replacement completed Tiesha Fu [facility] 11/03/2017 14:28:36 Partial hysterectomy completed Tiesha Fu [facility] 11/03/2017 14:28:49 Imaging Results None recorded. Procedure Notes None recorded. Medical Equipment None Reported. Allergies Allergen ID Allergen Name Allergen Category Reaction Reaction Severity Criticality Documentation Date Start Date Code Code System Note Provider Name and Address Organization Details Recorded Time 729675 Substance with sulfonami de structure and antibacte rial mechanism of action (substanc e) medicatio n anaphylax is Not available Not available 01/16/20162006 13982 8003 SNOMED possi ble, diffi culty breat fahad TIESHA CID, PAKeanuC [facility] [place], [address], [facility] 0 10:09:03 Medications Name Sig Start Date Stop Date Status Note LastModified by Organization Details LastModified Time desonide 0.05 % topical cream As Directed 11/27 completed Instruct ions: apply to affected area bid x2 weeks prn;Freq uency: as direct.; Medicati on Descript ion: desonide topical; Dosage:a s directed ; Route:to pical; refills: 2; Quantity :15 cream Not Available Not Available Not Available doxycycli ne hyclate 100 mg capsule Take 1 capsule twice a day by oral route. 10/04 completed Not Available Not Available Not Available Mobic 15 mg tablet Take 1 tablet every day by oral route. 04/10 completed Not Available Not Available Not Available Lortab 10 mg-500 mg tablet Two times a day 01/29 completed Frequenc y: bid;Medi cation Descript ion: acetamin ophen-hy drocodon e; Dosage:1 ; Route:or al; refills: 1; Quantity :60 tabletno t currentl y taking 10/05/23 Not Available Not Available Not Available Oxistat 1 % topical cream Two times a day 11/27 completed Frequenc y: bid;Medi cation Descript ion: oxiconaz ole topical; Dosage:a s directed ; Route:to pical; refills: 0; Quantity :15 cream Not Available Not Available Not Available albuterol sulfate concentra te 5 mg/mL(0.5 %) solution for nebulizat ion 01/29 completed Medicati on Descript ion: albutero l; Route:in halation ; refills: 0not currentl y taking 10/05/23 Not Available Not Available Not Available Claritin 10/04 completed Medicati on Descript ion: loratadi ne; Route:or al; refills: 0 Not Available Not Available Not Available prednison e PRN active Not Available Not Available Not Available Advil 10/04 completed Medicati on Descript ion: ibuprofe n; Route:or al; refills: 0 Not Available Not Available Not Available Tylenol active Not Available Not Avail able Not Available Ventolin 01/29 completed Medicati on Descript ion: albutero l; Route:or al; refills: 0not currentl y taking 10/05/23 Not Available Not Available Not Available Vitals Date Recorded Body height Body mass index (BMI) Body weight Provider Name and Address Organization Details Last Updated DateTime 06/11/2024 157.48 cm 25.1 kg/m2 23415.15 g Josselin Johnsonughn [facility] 06/11/2024 11:58:39 Social History Question Answer Notes LastModified by Organizat ion Details LastModified Time Tobacco Smoking Status Former Smoker quit 2010 Tiesha Fu [facility] 11/03/2017 14:28:10 What Is Your Level Of Caffeine Consumption? Moderate Soda [email or web address] Information not available 11/03/2017 Which Of Your Hands Is Dominant? Right [email or web address] Information not available 02/01/2020 Have You Been Treated For This Problem Before? No Information not available 11/03/2017 Will This Be Filed As Workers' Compensation? No [email or web address] Information not available 11/03/2017 Work Related Injury? No [email or web address] Information not available 11/03/2017 Sex: Unknown Functional Status Question Answer Note LastModified by Organizat ion Details LastModified Time Do you use any illicit or recreational drugs? No [email or web address] Information not available 02/01/2020 What is your level of alcohol consumption? None [email or web address] Information not available 11/03/2017 Are you currently employed? No [email or web address] Information not available 02/01/2020 What is your occupation? 0 [email or web address] Information not available 02/01/2020 Mental Status None recorded. Family History Relationship Description Onset Age of this Age Resolved Age Notes LastModified by Organization Details LastModified Time Father No current problems or disability [email or web address] Not available 10/22 14:27:53 Mother No current problems or disability Not available 10/22 14:27:53 Medical History Condition Response Allergies/Hayfever Y Other N Anxiety/Depression N Gout N Thyroid Disease N Kidney Stones N Heart Conditions N Hernia N Migraines N COPD N Glaucoma N Pneumonia N Skin Problems Y Immune System Disorder N Anesthesia Complications N Heart Attack (ID) N Mental Illness N Neurological Problems N Diabetes N Rheumatic Fever N Bleeding Disorder N Seizures/Epilepsy N Arthritis Y Blood Clot N Tuberculosis N Genetic Disorder N AIDS/HIV N Cancer N Stroke N Asthma N Blood Thinners N Sleep Apnea N Alcohol Overuse/Alcohol Abuse N High Cholesterol N Liver Disease N Included as Review of Systems Y Hypertension N Osteoporosis N Kidney Disease N Gynecological HistoryNo gynecological history recorded. Obstetrics History GPAL:G 0 P 0 0 0 0 Immunizations Vaccine Type Date Status Note Provider Nam e and Address Organization Details Recorded Time Influenza, high-dose, quadrivalent, PF 3 completed Lester Hopper [facility] 05/30/2024 11:58:23 COVID-19, mRNA, LNP-S, PF, 100 mcg/0.5mL dose or 50 mcg/0.25mL dose 1 completed Lester Hopper [facility] 05/30/2024 11:58:23 COVID-19, mRNA, LNP-S, PF, 100 mcg/0.5mL dose or 50 mcg/0.25mL dose 1 completed Lester Hopper [facility] 05/30/2024 11:58:23 COVID-19, mRNA, LNP-S, PF, 100 mcg/0.5mL dose or 50 mcg/0.25mL dose 2 completed Lester Hopper [facility] 05/30/2024 11:58:23 COVID-19, mRNA, LNP-S, PF, 100 mcg/0.5mL dose or 50 mcg/0.25mL dose 1 completed Lester Hopper [facility] 05/30/2024 11:58:23 pneumococcal polysaccharide PPV23 2 completed Lester Hopper [facility] 05/30/2024 11:58:23 Tdap 4 completed Lester Hopper [facility] 05/30/2024 11:58:23 Tdap 2 completed Lester Hopper [facility] 05/30/2024 11:58:23 Influenza, high-dose, trivalent, PF 0 completed Lester Hopper [facility] 05/30/2024 11:58:23 Influenza, high-dose, trivalent, PF 1 completed Lester Hopper [facility] 05/30/2024 11:58:23 Influenza, split virus, quadrivalent, PF 4 completed Lester Hopper [facility] 05/30/2024 11:58:23 Past Encounters Encounter ID Performer Location Encounter Start Date Encounter Closed Date Diagnosis/Indication Diagnosis SNOMED-CT Code Diagnosis ICD10 Code Diagnosis Note [id number] JEFF BEAULIEU MD [facility] [place] [address] [place] [id number] 05/30/2024 11:50:46 05/30/2024 12:13:08 Idiopathic osteoarthritis 352629087 M19.91 Right volar carpal ganglion cyst, recommend excision. Trigger fi nger of left hand [id number] 2789120 M65.30 Left long finger, injected for transient relief, may benefit from release A1 brian and possible excision of a thickened band of palmar fascia which may be contributi ng to tightness [id number] GAB LEON MD [facility] [place] [address] [place] [address] 06/11/2024 10:28:19 06/12/2024 04:43:50 Osteoarthritis of joint of left shoulder region 4842254784 52346 M19.012 Health Concerns Section Related Observation LastModified by Organization Detai ls LastModified Time None Recorded Concern Status LastModified by Organization Details LastModified Time None Recorded Payers Encounter Date Sequence Insurance Name Policy Number Policy [place] Covered Member ID [place] Member ID Guarantor Name 06/11/2024 1 [place] Ryan Rodriguez [id number] Ryan Rodriguez Notes Date Note Type Note Provider Name and Address Organization Details Recorded Time 06/11/2024 text/html HAND DOMINANCE: {{Right* Left}}WH AT: {{Right Left* Bi lateral}} {{Knee Ankle Hip Thigh Lower Leg Shoulder* El bow Wrist/Hand}}. WHEN: 06/06/2024HOW: movingSYMPTOMS:Shelia n is {{constant* inter mittent}} {{sharp pain dull ache* throbbing}} in nature.The patient {{has does not have*}} numbness or tinglingThey {{have* do not have}} popping and clickingThey {{are are not*}} able to sleep comfortably with this injury.Their pain is made better with {{resting the limb* moving the affected limb}}Their pain is exacerbated by {{bearing weight on the affected limb putting weight on and moving the affected limb nothing lift ing arm. #}}Overall, the patient would say that their pain {{is is not*}} well-controlled at this timePAIN: {{0 1 2 3 4 5 6 7* 8 9 10}} /10, at worstX-RAY: {{LC* We have disc Patient has disc No Disc}}MRI: {{LC We have disc Patient has disc No Disc no#}}PT: extensive physician directed HEPINJECTION: no GAB LEON MD [address] [place], [address], [facility] 06/11/2024 12:25:25 OBGyn Episode No OBEpisode recorded.
== END 2024-07-03 23:59 | disposition home or self-care (01) ==
LOC: LAB.DROPOF 07-05 12:33
PROVIDERS: PCP Nurse Practitioner Family; Visit Provider Nurse Practitioner Family
DX: E55.9 Vitamin D deficiency, unspecified (principal); M85.89 Other specified disorders of bone density and structure, multiple sites; I25.10 Atherosclerotic heart disease of native coronary artery without angina pectoris
CPT/HCPCS: 80053; 80061; 82306; 85025